=== PATIENT | male | born 1975 | race Caucasian/White ===

== ENCOUNTER 2023-02-03 08:41 | Outpatient (CLI) | payer BC | END 2023-02-03 08:42 | disposition home or self-care (01) | LOC: CSHULT 08:41 | PROVIDERS: ATTEND Internal Medicine | DX: R79.89 Other specified abnormal findings of blood chemistry (principal); R12 Heartburn; R53.83 Other fatigue; Z12.11 Encounter for screening for malignant neoplasm of colon; K82.4 Cholesterolosis of gallbladder | CPT/HCPCS: 76700 ==